=== PATIENT | male | born 1985 | race African-American/Black ===

== ENCOUNTER 2025-05-03 14:05 | Inpatient (IN) | payer OTHER ==
[~2025-05-03] VITALS: Ht 165.1 cm; Wt 63.8 kg
[2025-05-03 14:39] LABS: PLATELET COUNT, AUTOMATED 295 10^3/uL (150-450)
[2025-05-03 15:06] LABS: CANNABINOIDS URINE NEGATIVE (NEGATIVE); PHENCYCLIDINE URINE NEGATIVE (NEGATIVE)
[2025-05-03 15:07] LABS: AMPHETAMINES LEVEL URINE NEGATIVE (NEGATIVE); BARBITURATES URINE NEGATIVE (NEGATIVE); BENZODIAZEPINES URINE NEGATIVE (NEGATIVE); COCAINE METABOLITE URINE NEGATIVE (NEGATIVE); METHADONE URINE NEGATIVE (NEGATIVE); OPIATES URINE NEGATIVE (NEGATIVE)
[2025-05-03 15:10] LABS: ALT/SGPT 54 U/L (7.0-40); AST/SGOT 69 U/L (<34); CALCIUM LEVEL 9.1 MG/DL (8.5-10.1); CARBON DIOXIDE LEVEL 28 MMOL/L (20-31); CHLORIDE LEVEL 102 MMOL/L (98-107); CREATININE FOR GFR 1.33 MG/DL (0.70-1.30); GLOMERULAR FILTRATION RATE 70.2 (>60); POTASSIUM SERUM 3.8 MMOL/L (3.5-5.1); SALICYLATE LEVEL < 3.0 MG/DL (<30); SODIUM LEVEL 144 MMOL/L (136-145)
[2025-05-03 15:57] LABS: ETHYL ALCOHOL (ETHANOL) 0.333 % (0.000-0.010)
[2025-05-03] MEDS: MULTIVITAMINS/MINERALS THERAP 1 TAB PO SCH (16:24)
[2025-05-03] MEDS: FOLIC ACID 1 MG TAB PO SCH (16:24)
[2025-05-03] MEDS: THIAMINE 100 MG TAB PO SCH (20:58)
[2025-05-04] MEDS ORDERED: ACETAMINOPHEN 325 MG TAB PO PRN (02:05)
[2025-05-04] MEDS ORDERED: MOM 30 ML SUSPENSION UDC PO PRN (02:05)
[2025-05-04] MEDS ORDERED: MAALOX 30 ML SUSP *UDC PO PRN (02:05)
[2025-05-04] MEDS ORDERED: IBUPROFEN 400 MG TAB PO PRN (02:05)
[2025-05-04 11:24] VITALS: BP 137/92
[2025-05-04] MEDS: chlordiazePOXIDE 25 MG CAP PO SCH (11:38)
[2025-05-04] MEDS: FOLIC ACID 1 MG TAB PO SCH (11:38)
[2025-05-04] MEDS: SERTRALINE HCL 50 MG TAB PO SCH (11:38)
[2025-05-04] MEDS ORDERED: FERR325T19 PO (12:06)
[2025-05-04] MEDS ORDERED: DOXY100T PO (12:06)
[2025-05-04] MEDS ORDERED: HOME MED LIST COMPLETE! XX SCH (12:10)
[2025-05-04] MEDS: FERROUS SULFATE 325 MG TAB PO SCH (13:11)
[2025-05-04 13:30] VITALS: BP 122/82; TEMP 98.6; O2SAT 100
[2025-05-04 15:28] VITALS: BP 125/80
[2025-05-04 15:29] VITALS: BP 125/80; TEMP 97.8; O2SAT 98
[2025-05-04] MEDS: THIAMINE 100 MG TAB PO SCH (21:01)
[2025-05-04 21:20] VITALS: BP 125/77
[2025-05-05 06:30] VITALS: BP 122/78; TEMP 97.5; O2SAT 100
[2025-05-05] MEDS: MULTIVITAMINS/MINERALS THERAP 1 TAB PO SCH (08:38)
[2025-05-05 14:25] VITALS: BP 124/93; TEMP 97.8; O2SAT 99
[2025-05-05 16:48] VITALS: BP 130/70
[2025-05-05] MEDS: PRAZOSIN 1 MG CAP PO SCH (21:20)
[2025-05-05] MEDS: traZODone 50 MG TAB PO PRN (21:20)
[2025-05-05 21:21] VITALS: BP 126/76
[2025-05-06 06:13] VITALS: BP 113/63; TEMP 97.3; O2SAT 99
[2025-05-06] MEDS: DOCUSATE SODIUM 100 MG CAPSULE PO SCH (11:16)
[2025-05-06] MEDS: SODIUM CHLORIDE NASAL 0.65% SPRAY BTL (OCEAN) SCH (12:25)
[2025-05-06 14:52] VITALS: BP 123/82; TEMP 97.5; O2SAT 100
[2025-05-07] MEDS ORDERED: chlordiazePOXIDE 25 MG CAP PO PRN (06:00)
[2025-05-07 06:23] VITALS: BP 109/60; TEMP 97; O2SAT 99
[2025-05-07 15:15] VITALS: BP 120/74; TEMP 98; O2SAT 98
[2025-05-07 20:26] VITALS: BP 120/74
[2025-05-07] MEDS: traZODone 50 MG TAB PO SCH (20:26)
[2025-05-08 06:28] VITALS: BP 113/59; TEMP 97.1; O2SAT 99
[2025-05-08] MEDS ORDERED: PRAZ1CAP PO (09:12)
[2025-05-08] MEDS ORDERED: TRAZ-252 PO (09:12)
[2025-05-08] MEDS ORDERED: SERT50TA29 PO (09:12)
== END 2025-05-08 11:35 | disposition home or self-care (01) | DRG 885 ==
LOC: M ED 14:05 → M ED INP 05-04 02:03 → M PSY 05-04 03:30
PROVIDERS: ADMIT Psychiatry & Neurology Neurology; ATTEND Psychiatry & Neurology Psychiatry
DX: F33.1 Major depressive disorder, recurrent, moderate (principal); R45.851 Suicidal ideations; F10.239 Alcohol dependence with withdrawal, unspecified; F41.9 Anxiety disorder, unspecified; F10.229 Alcohol dependence with intoxication, unspecified; D50.9 Iron deficiency anemia, unspecified; Z79.899 Other long term (current) drug therapy; Z63.0 Problems in relationship with spouse or partner